=== PATIENT | female | born 1955 | race Caucasian/White ===

== ENCOUNTER 2016-11-21 18:54 | Emergency (ER) | payer MEDICAID ==
[~2016-11-21] VITALS: Ht 162.6 cm; Wt 70.0 kg
[2016-11-21] MEDS ORDERED: SIMV5TAB6 PO (19:00)
[2016-11-21] MEDS ORDERED: LEVO50 PO (19:00)
[2016-11-21] MEDS ORDERED: FURO20 PO (19:00)
[2016-11-21] MEDS ORDERED: ASPI81 PO (19:00)
[2016-11-21] MEDS ORDERED: ATOR10TA84 PO (19:00)
[2016-11-21] MEDS ORDERED: LOSA25TA21 PO (19:00)
[2016-11-21] MEDS ORDERED: VITAD1000 PO (19:00)
[2016-11-21] MEDS ORDERED: NITR.4 SL (19:12)
[2016-11-21 19:40] LABS: HEMATOCRIT 38.3 % (36-46); MEAN CORPUSCULAR HEMOGLOBIN 30.7 pg (26.0-34.0); MEAN CORPUSCULAR HGB CONC 33.8 G/dL (31.0-37.0); MEAN CORPUSCULAR VOLUME 91 fL (80-100); PLATELET COUNT (AUTO) 272 K/uL (150-450); RED BLOOD CELL COUNT(AUTO) 4.22 MIL/uL (4.00-5.20); RED CELL DISTRIBUTION WIDTH 14.9 % (11.5-14.5); WHITE BLOOD COUNT (AUTO) 10.6 K/uL (4.5-11.0)
[2016-11-21 19:47] LABS: ANION GAP 9 mmol/L (8-16); CALCIUM, TOTAL 9.2 mg/dL (8.8-10.5); CARBON DIOXIDE 26 mmol/L (22-29); CHLORIDE 106 mmol/L (98-107); CREATININE 0.68 mg/dL (0.60-1.30); GLOMERULAR FILTR. RATE CALC > 60 mL/min (>60); POTASSIUM 3.9 mmol/L (3.5-5.1); SODIUM SERUM 141 mmol/L (136-145); UREA NITROGEN, BLOOD 14 mg/dL (7-18)
[2016-11-21 20:05] LABS: BASOPHILS % (MANUAL) 2 % (0-2); EOSINOPHILS % (MANUAL) 3 % (1-6); LYMPHOCYTES % (MANUAL) 53 % (22-44); TOTAL CELLS COUNTED 100
[2016-11-21 20:09] LABS: B-TYPE NATRIURETIC PEPTIDE 77 pg/mL (0-100)
[2016-11-21 20:11] LABS: ALANINE AMINOTRANSFERASE 21 U/L (12-78); ALBUMIN 3.4 g/dL (3.4-5.0); ASPARTATE AMINOTRANSFERASE 19 U/L (15-37); BILIRUBIN,TOTAL 0.3 mg/dL (0.1-1.0); CREATINE KINASE, TOTAL 126 U/L (26-192); TOTAL PROTEIN, SERUM 7.4 g/dL (6.4-8.2)
[2016-11-21 20:37] LABS: ADD UA MICROSCOPIC NO; APPEARANCE,URINE CLEAR (CLEAR); GLUCOSE, URINE (UA) NEGATIVE (NEGATIVE); KETONES,URINE NEGATIVE (NEGATIVE); LEUKOCYTE ESTERASE ,URINE NEGATIVE (NEGATIVE); OCCULT BLOOD,URINE NEGATIVE (NEGATIVE); PH,URINE 6.5 (5.0-8.0); PROTEIN,URINE NEGATIVE (NEGATIVE)
[2016-11-21 22:00] VITALS: BP 121/76
[2016-11-21 22:26] LABS: CREATINE KINASE, TOTAL 117 U/L (26-192)
== END 2016-11-21 22:46 | disposition home or self-care (01) ==
LOC: EDBD 18:56 → EMS 18:56
DX: R07.89 Other chest pain (principal); R60.0 Localized edema; Z79.82 Long term (current) use of aspirin; Z79.899 Other long term (current) drug therapy; Z90.81 Acquired absence of spleen
CPT/HCPCS: 93005; 99285

== ENCOUNTER 2017-12-17 08:45 | Day surgery (SDC) | payer MEDICAID ==
[~2017-12-17] VITALS: Ht 165.1 cm; Wt 87.3 kg
[~2017-12-17 08:45] MED LIST: ASPI81 PO; ATOR10TA84 PO; CITA10TA68 PO; ESCI10TA PO; FAMO20 PO; FLUT16H NASAL; FURO20 PO; GABA-529 PO; LEVO50 PO; LISI-660 PO; LOSA25TA16 PO; MONT10TA21 PO; NITR.4 SL; RANI150T7 PO; TRAM50TA4 PO; VITAD1000 PO
[2017-12-17] MEDS ORDERED: METOPROLOL TARTRATE 50 MG TABLET PO PRN (09:00)
[2017-12-17] MEDS ORDERED: 0.9% SODIUM CHLORIDE 10 ML SYRINGE IVP PRN (09:00)
[2017-12-17] MEDS ORDERED: METOPROLOL TARTRATE 5 MG/5 ML VIAL ONE (10:25)
[2017-12-17] MEDS ORDERED: NITROGLYCERIN 400 MCG/SUBLINGUAL SPRAY 4.9 GM BOTTLE SL ONE (10:25)
[2017-12-17] MEDS ORDERED: IOVERSOL 350 MG/ML 150 ML VIAL ONE (10:26)
[2017-12-17] MEDS ORDERED: SODIUM CHLORIDE 0.9% 100 ML ONE (10:26)
== END 2017-12-17 11:25 | disposition home or self-care (01) ==
LOC: SURGERY 08:45 → EDSTATUS 10:30 → SURGERY 11:25
PROVIDERS: ATTEND Internal Medicine Cardiovascular Disease
DX: I25.118 Atherosclerotic heart disease of native coronary artery with other forms of angina pectoris (principal); J44.9 Chronic obstructive pulmonary disease, unspecified; I11.0 Hypertensive heart disease with heart failure; I50.20 Unspecified systolic (congestive) heart failure; I71.4 Abdominal aortic aneurysm, without rupture; I34.0 Nonrheumatic mitral (valve) insufficiency; E03.9 Hypothyroidism, unspecified; F32.9 Major depressive disorder, single episode, unspecified; E78.00 Pure hypercholesterolemia, unspecified; Z87.09 Personal history of other diseases of the respiratory system; G47.33 Obstructive sleep apnea (adult) (pediatric); Z85.71 Personal history of Hodgkin lymphoma; Z90.49 Acquired absence of other specified parts of digestive tract; Z86.79 Personal history of other diseases of the circulatory system; Z79.891 Long term (current) use of opiate analgesic; Z79.82 Long term (current) use of aspirin; Z79.899 Other long term (current) drug therapy; Z98.890 Other specified postprocedural states
CPT/HCPCS: 75574; J7050; Q9967; J3490

== ENCOUNTER → 2020-11-08 | Outpatient (CLI) | payer MEDICARE, MEDICAID ==
[~2020-11-08] MED LIST changes: +AMLO5TAB66 PO; +ASPI-1444 PO; -ASPI81 PO; -ATOR10TA84 PO; +ATOR20TA86 PO; +CHOL-35 PO; +CITA-144 PO; -CITA10TA68 PO; -ESCI10TA PO; +FINA5TAB41 PO; +GABA-1216 PO; -GABA-529 PO; +ISOS30TA11 PO; +LEVO750T68 PO; -LISI-660 PO; +LISI-892 PO; -LOSA25TA16 PO; +LOSA25TA21 PO; +MONT-35 PO; -MONT10TA21 PO; -NITR.4 SL; +NITR0.4T52 SL; +POTA8TAB4 PO; -RANI150T7 PO; -VITAD1000 PO
== END | disposition home or self-care (01) ==
LOC: RADPV 10:43
PROVIDERS: ATTEND Internal Medicine Cardiovascular Disease
DX: N28.1 Cyst of kidney, acquired (principal); R16.0 Hepatomegaly, not elsewhere classified
CPT/HCPCS: 76700